=== PATIENT | female | born 1975 | race Caucasian/White ===

== ENCOUNTER 2018-08-13 18:07 | Emergency (ER) | payer MEDICAID ==
--- NOTE | 2018-08-13 18:10 | ER Report ---
History and Physical Time Seen By MD: 18:09 HPI/ROS CHIEF COMPLAINT: Shortness of breath HISTORY OF PRESENT ILLNESS: 42-year-old female with a history of COPD who continues to smoke. Presents to the ER feeling short of breath. She is traveling across to [place]. She got short of breath going over [place]. She was watching her pulse ox, it dipped down to 82%. She began to feel weird and dizzy. She had no fever, no chills, no nausea or vomiting. She denies chest pain. She denies leg swelling. She took a nebulizer treatment without improvement of her condition. She thought she should be evaluated. She was traveling from [place], [place]. And came to rapid elevation within a few hours. REVIEW OF SYSTEMS: Respiratory: As above Cardiovascular: No chest pain, no palpitations. Gastrointestinal: No vomiting, no abdominal pain. Musculoskeletal: No back pain. Allergies: Coded Allergies: Penicillins (Verified Allergy, Unknown, 08/13/18) Sulfa (Sulfonamide Antibiotics) (Verified Allergy, Unknown, 08/13/18) adhesive (Verified Allergy, Unknown, 08/13/18) ampicillin (Verified Allergy, Unknown, 08/13/18) ciprofloxacin (Verified Allergy, Unknown, 08/13/18) fentanyl (Verified Allergy, Unknown, 08/13/18) hydroxyzine (Verified Allergy, Unknown, 08/13/18) iodine (Verified Allergy, Unknown, 08/13/18) levofloxacin (Verified Allergy, Unknown, 08/13/18) lithium (Verified Allergy, Unknown, 08/13/18) promethazine (Verified Allergy, Unknown, 08/13/18) epinephrine (Verified Adverse Reaction, Unknown, 08/13/18) fainting Home Meds Active Scripts Prednisone (PREDNISONE) 20 Mg Tablet, 40 MG PO QDAY for reduce lung i nflammation, #7 2 by mouth daily for 2 days then 1 by mouth daily for 3 days Prov:LOUIS ORTIZ DO 08/13/18 Reported Medications Clonazepam (CLONAZEPAM) 2 Mg Tab.rapdis, 2 MG PO BID, #6 TAB 08/13/18 Fluticasone Prop 50 Mcg Ns (FLONASE 50 MCG NS) 16 Gm [place].susp, 1 SPRAY NS BID, BOT 08/13/18 Budesonide/Formoterol Fumarate (SYMBICORT 160-4.5 MCG INHALER) 10.2 Gm Inh, 10.2 GM INH, INH 08/13/18 Tiotropium [place] (SPIRIVA) 18 Mcg/Cap Inh, 18 MCG INH, INH 08/13/18 [albuterol neb] No Conflict Check 08/13/18 Pantoprazole Sodium (PANTOPRAZOLE SODIUM) 40 Mg Tablet.dr, 40 MG PO QDAY, TAB.SR 08/13/18 Sertraline Hcl (ZOLOFT) 100 Mg Tablet, 1 TAB PO QDAY, TAB 08/13/18 Levothyroxine Sodium (LEVOTHYROXINE SODIUM) 50 Mcg Tablet, 50 MCG PO QDAY, TAB 08/13/18 Past Medical/Surgical History COPD, hypothyroidism Reviewed Nurses Notes: Yes Old Medical Records Reviewed: Yes Constitutional Vital Sign - Last 24 Hours 08/13/18 08/13/18 08/13/18 08/13/18 18:11 18:20 18:20 18:26 Pulse 99 86 90 Resp 16 16 16 B/P (MAP) 144/89 Pulse Ox 91 93 O2 Delivery Room Air Room Air 08/13/18 18:59 Pulse 80 Resp 16 B/P (MAP) 120/84 (96) Pulse Ox 92 O2 Delivery Room Air Physical Exam General Appearance: The patient is alert, has no immediate need for airway protection and no current signs of toxicity. Vital signs stable, afebrile, pulse ox normal HEENT: Pupils equal and round no injection. TMs normal, oropharynx with mild erythema, no exudate or petechiae Respiratory: Chest is non tender, decreased breath sounds throughout, no Rales, wheezing or rhonchi noted, mildly increased work of breathing, mildly prolonged expiratory phase Cardiac: regular rate and rhythm Gastrointestinal: Abdomen is soft and non tender, no masses, bowel sounds normal. Musculoskeletal: Neck: Neck is supple and non tender. No lymphadenopathy Extremities have full range of motion and are non tender. No edema, no calf tenderness Skin: No rashes or lesions. [ ] DIFFERENTIAL DIAGNOSIS: After history and physical exam differential diagnosis was considered for shortness of breath including but not limited to pulmonary infectious process, COPD, asthma, pulmonary embolus and congestive heart failure. Medical Decision Making EKG/Imaging Imaging X-ray: Two-view chest x-ray was obtained. I viewed the images myself on the PACS system. My interpretation of the images is: Hyperinflation, no infiltrate, no effusion, normal mediastinum. The radiologist interpretation had no clinically significant variation from this interpretation. ED Course/Re-evaluation ED Course Patient was admitted to an examination room. H&P was done. The differential diagnoses was considered. On clinical examination. Patient has stable vital signs and normal pulse ox. She has mild respiratory distress. She is treated with DuoNeb nebulizer and prednisone. Patient had a chest x-ray performed, which were unremarkable. Patient's placed on prednisone taper. She is advised to use her inhaler as necessary. Patient advised to follow-up with her primary care physician upon returning home. She is cautioned to go to the nearest ER for any worsening. Decision to Disposition Date: Aug 13, 2018 Decision to Disposition Time: 18:20 Depart Departure Latest Vital Signs Vital Signs Date Time Temp Pulse Resp B/P (MAP) Pulse Ox O2 Delivery O2 Flow Rate FiO2 08/13/18 18:59 80 16 120/84 (96) 92 Room Air Impression: Primary Impression: COPD exacerbation Additional Impression: Altitude anoxia Condition: Improved Disposition: HOME OR SELF-CARE New Scripts Prednisone (PREDNISONE) 20 Mg Tablet 40 MG PO QDAY for reduce lung inflammation, #7 2 by mouth daily for 2 days then 1 by mouth daily for 3 days Prov: LOUIS ORTIZ DO 08/13/18 Patient Instructions: COPD (Chronic Obstructive Pulmonary Disease) (ED) Additional Instructions: Take prednisone taper as prescribed Go to the nearest ER for any worsening Follow-up with of with your primary care doctor upon returning home Problem Qualifiers Additional Impression: Altitude anoxia Encounter type: initial encounter Qualified Codes: T70.29XA - Other effects of high altitude, initial encounter LOUIS ORTIZ DO Aug 13, 2018 18:10
[2018-08-13] MEDS ORDERED: PANT40TA65 PO (18:20)
[2018-08-13] MEDS ORDERED: ALBUTEROL/IPRATROPIUM 3 ML NEB NEB ONE (18:20)
[2018-08-13] MEDS ORDERED: BUDE10.2 INH (18:20)
[2018-08-13] MEDS ORDERED: CLON-390 PO (18:20)
[2018-08-13] MEDS ORDERED: LEVO50TA86 PO (18:20)
[2018-08-13] MEDS ORDERED: albuterol neb (18:20)
[2018-08-13] MEDS ORDERED: predniSONE 20 MG TAB PO ONE (18:20)
[2018-08-13] MEDS ORDERED: FLUT16SP19 NS (18:20)
[2018-08-13] MEDS ORDERED: SERT-173 PO (18:20)
[2018-08-13] MEDS ORDERED: TIO18R INH (18:20)
[2018-08-13] MEDS ORDERED: PRED20TA6 PO (18:22)
--- NOTE | 2018-08-13 18:58 | RADIOLOGY IMAGING REPORT ---
FACILITY: [facility] [place]IENT NAME: Yesi Heredia : 1975 MR: [id number] V: [id number] EXAM DATE: ORDERING PHYSICIAN: LOUIS ORTIZ TECHNOLOGIST: Location: [facility] [place] Patient: Yesi Heredia : 1975 Visit/Account:[id number] Date of Sevice: 08/13/2018 2 VIEWS CHEST INDICATION: Dyspnea and hypoxia. COMPARISON: None available FINDINGS: Cardiomediastinal silhouette and pulmonary vessels within normal limits. Mild emphysematous changes are present. No focal area of consolidation. There is no pneumothorax or pleural effusion. No nodule. Upper abdomen is unremarkable. No acute bony abnormality. IMPRESSION: 1. No acute cardiopulmonary process. Report Dictated By: Braden Up at 08/13/2018 6:52 PM Report E-Signed By: Braden Up at 08/13/2018 6:54 PM WSN:[id number]
[2018-08-13 18:59] VITALS: BP 120/84
== END 2018-08-13 19:08 | disposition home or self-care (01) ==
LOC: ER 18:15
DX: J44.1 Chronic obstructive pulmonary disease with (acute) exacerbation (principal); T70.29XA Other effects of high altitude, initial encounter; F17.210 Nicotine dependence, cigarettes, uncomplicated
CPT/HCPCS: 94640; 99283; J7512; J7620; 71046